=== PATIENT | male | born 1980 | race Two or more races ===

== ENCOUNTER 2016-08-27 11:46 | Emergency (ER) | payer OTHER ==
--- NOTE | ~2016-08-27 | CR72 ---
[facility] A Service of [facility] & [facility] RADIOLOGY TEXT RESULTS PATIENT: MAXWELL CAMPBELL LOCATION: [facility] : 82 UNIT #: [id number] AGE: [address]: Courtney Gray MD SEX: M ORDER DR: [id number] [place] [address] [place], [place] [address] [id number] MR#: [id number] Acc #: [id number] NAME: MAXWELL CAMPBELL : 1980 SEX: M STUDY DATE/TIME: 08/27/2016 12:01 UNIT: [facility] ROOM: STUDY DESCRIPTION: CR Chest Single View Portable Attending Physician: Courtney Gray M.D. Ordering Physician: Courtney Gray M.D. Primary Care Physician: [facility], [facility]. MEDICAL IMAGING REPORT This report is preliminary unless electronic signature is present EXAM AP portable chest, 08/27/2016. HISTORY 36-year-old male with shortness breath this morning. COMPARISON AP portable chest, 05/12/2016. FINDINGS No acute airspace disease. Heart size is within normal limits. No pleural effusion or pneumothorax or acute osseous abnormalities are identified. Mild bilateral perihilar interstitial type thickening has a very similar appearance to a more remote 02/09/2014 examination. IMPRESSION No acute cardiopulmonary findings. Dictated by... Radha Zazueta M.D. THIS IS AN ELECTRONICALLY VERIFIED REPORT Radha Zazueta M.D. at 08/30/2016 8:37 AM TYE/delmar TD: 08/27/2016 15:47 JOB #: [id number] MEDICAL IMAGING REPORT Page 1 of 1 COPY
[2016-08-27 12:45] LABS: BASOPHIL# 0.1 X10e3 (0-0.3); BASOPHIL% 0.6 % (0-2.5); EOSINOPHIL# 0.9 X10e3 (0-0.7); EOSINOPHIL% 8.4 % (0.0-7.0); HEMATOCRIT 44.5 % (38.0-50.0); HEMOGLOBIN 14.7 gm/dL (13.0-16.0); LYMPHOCYTE# 2.5 X10e3 (1.0-3.5); LYMPHOCYTE% 24.1 % (17.0-45.0); MEAN CELL VOLUME 95.6 FL (83-96); MEAN CORPUSCULAR HEMOGLOBIN 31.5 PG (28-34); MONOCYTE# 0.9 X10e3 (0-1.0); MONOCYTE% 8.8 % (3.0-12.0); NEUTROPHIL# 5.9 X10e3 (1.5-7.1); NEUTROPHIL% 58.1 % (40-75); PLATELET COUNT 272 X10e3 (140-420); RED BLOOD COUNT 4.66 X10e (3.90-5.60); RED CELL DISTRIBUTION WIDTH 13.3 % (11.0-15.5); WHITE BLOOD COUNT 10.2 X10e3 (4.0-10.5)
[2016-08-27 12:54] LABS: DIFF IND NO
[2016-08-27 13:02] LABS: BILIRUBIN, DIRECT 0.2 mg/dL (0.0-0.2); BILIRUBIN,INDIRECT 0.8 mg/dL (0.0-0.9); CREATININE SERUM 0.8 mg/dL (0.6-1.4); GLOM FILT RATE Estimated 115.8 mL/min (>60); POTASSIUM 3.9 mmol/L (3.5-5.1); PROTEIN TOTAL SERUM 6.4 g/dL (6.0-8.3)
[2016-08-27 14:09] LABS: AMPHETAMINE POS (NEG); BARBITURATES NEG (NEG); BENZODIAZEPINES POS (NEG); COCAINE POS (NEG); MARIJUANA POS (NEG); OPIATES POS (NEG); TRICYCLIC ANTIDEPRESSANTS NEG (NEG); U METHADONE NEG (NEG)
== END 2016-08-27 16:17 | disposition home or self-care (01) ==
LOC: CED 11:46
PROVIDERS: Emergency Medicine
DX: J45.901 Unspecified asthma with (acute) exacerbation (principal); F17.210 Nicotine dependence, cigarettes, uncomplicated
CPT/HCPCS: 36415; 71010; 80048; 80076; 80307; 85025; 96365; 96375; 99284; J2930; J3475

== ENCOUNTER 2016-09-04 10:00 | Emergency (ER) | payer OTHER ==
--- NOTE | ~2016-09-04 | EKG ---
PATIENT: MAXWELL CAMPBELL UNIT #: [id number] Ventricular Rate: 86 BPM Atrial Rate: 86 BPM P-R Interval: 150 ms QRS Duration: 94 ms Q-T Interval: 364 ms QTC Calculation(Bezet): 435 ms P [place]: 79 degrees Calculated R [place]: 85 degrees Calculated T [place]: 72 degrees Diagnosis Line: Normal sinus rhythm Diagnosis Line: Normal ECG Diagnosis Line: When compared with ECG of 12-MAY-2016 22:17, Diagnosis Line: No significant change was found Diagnosis Line: Confirmed by ELSA SOUZA MD ([id number]) on 09/04/2016 Diagnosis Line: 6:39:17 PM INTERPRETING MD: LIBBY WYLIE
== END 2016-09-04 11:50 | disposition home or self-care (01) ==
LOC: CED 10:00
DX: J45.41 Moderate persistent asthma with (acute) exacerbation (principal); F19.10 Other psychoactive substance abuse, uncomplicated; F17.210 Nicotine dependence, cigarettes, uncomplicated; Z98.890 Other specified postprocedural states; Z76.0 Encounter for issue of repeat prescription
CPT/HCPCS: 36415; 93005; 96374; 99284; J2930

== ENCOUNTER 2016-09-12 18:57 | Inpatient (IN) | payer OTHER ==
--- NOTE | ~2016-09-12 | OR ---
Unit #: [id number] #: [id number] Patient: MAXWELL CAMPBELL [id number] [address] [place], [place] [address] [id number] I MR#: [id number] NAME: MAXWELL CAMPBELL ROOM: 219 Date of Procedure: 09/13/2016 Admission Date: 09/12/2016 Surgeon: Lorenzo Higuera M.D. : 1980 Attending Physician: Tong Philip M.D. Primary Care Physician: [facility]. OPERATIVE REPORT PREOPERATIVE DIAGNOSIS Abscess, left upper arm. POSTOPERATIVE DIAGNOSIS Abscess, left upper arm. PROCEDURE PERFORMED Incision and drainage of abscess, left upper arm. ANESTHESIA General LMA anesthesia with 0.5% Marcaine plain local anesthesia. FINDINGS The patient was found to have a large abscess in the anterior aspect of his left arm in the biceps region. SPECIMENS Sent to microbiology. COMPLICATIONS None apparent. CONDITION The patient tolerated the procedure well. INDICATIONS FOR PROCEDURE The patient is a 36-year-old male, who presents now with an abscess from heroin injection in the left biceps region. He presents at this time for incision and drainage. DESCRIPTION OF PROCEDURE After obtaining informed consent as well as receiving scheduled antibiotics, the patient was brought to the operating room, and after adequate general LMA anesthesia was obtained, had the left upper arm prepped and draped in a sterile fashion. The patient had a small opening made by the emergency room physician. This was probed with a hemostat and it showed that the cavity extended proximally and distally longitudinally. An incision was made over this area proximally and distally with a knife and taken down through the subdermal tissues and subcutaneous tissues with electrocautery with good hemostasis. All loculations of the abscess cavity were broken up. Cultures were sent. The wound was irrigated and hemostasis was obtained with the Bovie and infiltrated with 0.5% Marcaine Unit #: [id number] #: [id number] Patient: MAXWELL CAMPBELL plain local anesthesia and packed with a saline soaked fluff. A dry dressing was applied, followed by a Kerlix wrap. Needle counts, sponge counts, and instrument counts were all correct as reported by the scrub nurse x2. The patient went from the operating room to recovery room in stable condition. Dictated by... Johny Brown/pelon TD: 09/13/2016 19:23 JOB #: [id number] CC: [facility] OPERATIVE REPORT Page 1 of 1 X Lorenzo Higuera MD X PROCEDURE OPERATIVE NOTE
--- NOTE | ~2016-09-12 | HP ---
Unit #: [id number] #: [id number] Patient: MAXWELL RIOS [id number] [address] [address] [id number] I MR#: [id number] NAME: MAXWELL RIOS ROOM: 219 Age: 36 Sex: M Admission Date: 09/12/2016 : 1980 Attending Physician: Tong Philip M.D. Primary Care Physician: [facility] HISTORY AND PHYSICAL HISTORY OF PRESENT ILLNESS Mr. Rios is a 36-year-old white male, IV drug abuse with left arm abscess that was partially drained in the emergency room, however, still draining and it will need completion drainage. PAST MEDICAL HISTORY He has had a history of methamphetamine use and heroin use. He has had a history of asthma. He has had no previous surgery. SOCIAL HISTORY He is a fourth pack per day smoker. No alcohol. He works outside the home. ALLERGIES None. MEDICATIONS AT HOME 1. Symbicort. 2. Albuterol. 3. Zyrtec. 4. Flonase. PHYSICAL EXAMINATION GENERAL APPEARANCE: A cooperative, alert white male. VITAL SIGNS: Temperature 99 degrees. Pulse 100. Respirations 15. Blood pressure 120/60. Pain scale around 7. ENT: Clear. There is no jaundice. The patient does have vitiligo. CHEST: Clear to auscultation and percussion. CARDIAC: Rhythm is regular. ABDOMEN: Soft, nontender. No peritoneal sign. EXTREMITIES: Full range of motion, 1 to 2+ peripheral pulse bilaterally. No peripheral edema. The left arm up, in the biceps humerus, there is a draining abscessed area. There is fat necrosis coming out of the drain site. PLAN We will put a dressing back over it and will be taken down for left arm abscess and drainage. Dictated by Johny Lopez/brooklyn Unit #: [id number] #: [id number] Patient: MAXWELL RIOS TD: 09/13/2016 06:28 JOB #: [id number] HISTORY AND PHYSICAL Page 1 of 1 X Joselito Valdez MD X HISTORY AND PHYSICAL
--- NOTE | ~2016-09-12 | DS ---
Unit #: [id number] #: [id number] Patient: MAXWELL CAMPBELL [id number] [address] [address] [id number] I MR#: [id number] NAME: MAXWELL CAMPBELL ROOM: 219 Age: 36 Sex: M Admission Date: 09/12/2016 : 1980 Discharge Date: 09/14/2016 Attending Physician: Tong Philip M.D. Primary Care Physician: [facility]. DISCHARGE SUMMARY DISCHARGE DIAGNOSIS Left upper arm abscess secondary to narcotic abuse. OPERATIVE PROCEDURE Incision, drainage and debridement of left upper arm abscess. DISCHARGE MEDICATIONS 1. Home medications. 2. Lortab 7.5 mg 1 p.o. q.4 h. p.r.n. pain. 3. Doxycycline 100 mg p.o. b.i.d. for 10 days. HISTORY OF PRESENT ILLNESS/HOSPITAL COURSE The patient is a 36-year-old male with left arm abscess secondary to IV drug use. He was admitted and given intravenous antibiotics. He was taken to surgery. This was drained and cleaned out without difficulty per Dr. Higuera. The patient's postoperative course has been benign. The dressings are changing twice a day with Dakin's solution. The patient is doing fairly well and tolerating these dressing changes. He will do them himself at home since he has no one to help him. He will have the aid of home health. FOLLOWUP He will come back to see us in the wound clinic in approximately 7-10 days. Dictated by... Johny Lopez/dean TD: 09/14/2016 10:37 JOB #: [id number] Unit #: [id number] #: [id number] Patient: MAXWELL CAMPBELL DISCHARGE SUMMARY Page 1 of 1 X Joselito Valdez MD X DISCHARGE SUMMARY
[2016-09-12 20:56] LABS: BUN/CREATININE RATIO 16.25; CALCIUM SERUM 8.9 mg/dL (8.4-10.2); CREATININE SERUM 0.8 mg/dL (0.6-1.4); GLOM FILT RATE Estimated 115.8 mL/min (>60); POTASSIUM 4.6 mmol/L (3.5-5.1)
[2016-09-12 21:18] LABS: BASOPHIL# 0.1 X10e3 (0-0.3); BASOPHIL% 0.4 % (0-2.5); EOSINOPHIL# 0.2 X10e3 (0-0.7); EOSINOPHIL% 0.9 % (0.0-7.0); HEMATOCRIT 45.3 % (38.0-50.0); LYMPHOCYTE# 2.2 X10e3 (1.0-3.5); LYMPHOCYTE% 11.9 % (17.0-45.0); MEAN CELL VOLUME 94.6 FL (83-96); MEAN CORPUSCULAR HEMOGLOBIN 31.4 PG (28-34); MEAN CORPUSCULAR HGB CONC 33.2 g/dL (30-36); MEAN PLATELET VOLUME 7.7 FL (6.5-11.5); MONOCYTE# 2.1 X10e3 (0-1.0); MONOCYTE% 11.5 % (3.0-12.0); NEUTROPHIL# 13.7 X10e3 (1.5-7.1); NEUTROPHIL% 75.3 % (40-75); PLATELET COUNT 262 X10e3 (140-420); RED BLOOD COUNT 4.79 X10e (3.90-5.60); RED CELL DISTRIBUTION WIDTH 13.1 % (11.0-15.5); WHITE BLOOD COUNT 18.2 X10e3 (4.0-10.5)
[2016-09-12 21:26] LABS: DIFF IND YES
[2016-09-12 22:33] LABS: PLATELET ESTIMATE NORMAL (NORMAL)
[2016-09-12 22:34] LABS: RBC NORMAL YES
[2016-09-13] MEDS ORDERED: SYMBICORT INH (01:38)
[2016-09-13] MEDS ORDERED: ALBUTEROL17 GM INH (01:38)
[2016-09-13] MEDS ORDERED: ALBUTEROL2.5 MG/3 M INH (01:39)
[2016-09-13] MEDS ORDERED: ZYRTEC10 M1 PO (01:39)
[2016-09-13] MEDS ORDERED: FLONASE ALLERG9.9 ML (01:40)
[2016-09-14 07:51] LABS: CREATININE SERUM 0.6 mg/dL (0.6-1.4); GLOM FILT RATE Estimated 130.3 mL/min (>60)
[2016-09-14] MEDS ORDERED: LORTAB 7.5-3251 EACH PO (09:01)
[2016-09-14] MEDS ORDERED: DOXYCYCLINE HY100 M3 (09:02)
== END 2016-09-14 10:40 | disposition home or self-care (01) | DRG 581 ==
LOC: CED 18:57 → CEDOF 20:06 → C2A 09-13 00:22
PROVIDERS: Emergency Medicine; Surgery
PROC: 0J9F0ZZ Drainage of Left Upper Arm Subcutaneous Tissue and Fascia, Open Approach (ICD-10-PCS; principal; 2016-09-13 10:00)
DX: L02.414 Cutaneous abscess of left upper limb (principal); F11.10 Opioid abuse, uncomplicated; F17.210 Nicotine dependence, cigarettes, uncomplicated; J45.909 Unspecified asthma, uncomplicated
CPT/HCPCS: 10060; 36415; 80048; 82565; 83605; 84520; 85025; 87070; 87075; 87077; 87186; 87205; 96365; 96367; 99285; J0696; J1956; J2250; J2270; J2405; J2543; J3010; J3370